=== PATIENT | female | born 1975 | race Caucasian/White ===

== ENCOUNTER 2021-01-16 20:38 | Emergency (ER) | payer MEDICAID, OTHER ==
[2021-01-16 20:58] VITALS: BP 147/84; PULSE 83
--- NOTE | 2021-01-16 21:08 | EDM.PDOC ---
ED HPI GENERAL MEDICAL PROBLEM - General Chief Complaint: Genitourinary Problem Stated Complaint: UTI FOR 2 WKS Time Seen by Provider: 01/16/21 20:55 Source of Information: Reports: Patient History Limitations: Reports: No Limitations - History of Present Illness INITIAL COMMENTS - FREE TEXT/NARRATIVE: Salome is a 45-year-old female presenting to the ED for complaint of bilateral f lank pain and bladder spasms. The patient's problems began approximately 3 weeks ago when she thought she had a vaginal yeast infection. She treated herself with Monistat 7 for 7 days without relief and followed up in the clinic with a nurse practitioner who put her on Diflucan for 2 doses. She still did not improve and returned to her primary provider who did a urinalysis that was negative. He put her on an additional medication for possible bacterial vaginosis, however, the work-up for that was negative as was tested for STIs. She returned approximately a week ago with increased burning in the vaginal area and she was started on Bactrim for possible UTI. She took this for 3 days without improvement return to the clinic at which point her culture showed Klebsiella, however, there were no sensitivities reported. She was changed to doxycycline 100 mg twice daily which she has been on since Wednesday (5 days ago) but has had continued worsening of symptoms prompting her to come to the ED tonight. Again she is complaining of bilateral flank pain and increasing bladder spasms. She denies any fever, chills, nausea or vomiting. She has significant flank tenderness to percussion signifying the likelihood of pyelonephritis at this time. The Klebsiella is most likely resistant to the doxycycline. Lower Groin Pain Score (Numeric/FACES): 10 - Related Data Allergies Allergy/AdvReac Type Severity Reaction Status Date / Time No Known Allergies Allergy Verified 01/16/21 20:48 Home Meds: Home Meds Docosanol [Abreva 10%] 1 dose TOP ASDIRECTED 06/21/16 [History] cycloSPORINE [Restasis] 1 drop EYEBOTH BID 06/21/16 [History] Doxycycline [Doxycycline Hyclate] 100 mg PO BID 01/16/21 [History] Past Medical History - Past Health History Medical/Surgical History: Denies Medical/Surgical History HEENT History: Reports: Impaired Vision Genitourinary History: Reports: Pyelonephritis Other Genitourinary History: UTI, herpes zoster [employer] History: Reports: , Spontaneous Other [employer] History: hysterectomy, genital herpes new diagnosis 08/2015 Immunologic History: Reports: None - Infectious Disease History Infectious Disease History: Reports: Chicken Pox - Past Surgical History GI Surgical History: Reports: Colonoscopy, Polypectomy Female Surgical History: Reports: D&C, Hysterectomy Social & Family History - Family History Oncologic: Reports: Breast - Tobacco Use Tobacco Use Status *Q: Current Every Day Tobacco User Years of Tobacco use: 23 Packs/Tins Daily: 1 - Caffeine Use Caffeine Use: Reports: Coffee - Alcohol Use Days Per Week of Alcohol Use: 7 Number of Drinks Per Day: 3 Total Drinks Per Week: 21 - Recreational Drug Use Recreational Drug Use: No - Living Situation & Occupation Living situation: Reports: , with Family Occupation: Employed ED ROS GENERAL - Review of Systems Review Of Systems: See Below Constitutional: Reports: Malaise HEENT: Reports: No Symptoms Respiratory: Reports: No Symptoms Cardiovascular: Reports: No Symptoms Endocrine: Reports: No Symptoms GI/Abdominal: Reports: Abdominal Pain (Suprapubic) : Reports: Dysuria, Flank Pain, Other (Vaginal burning) Musculoskeletal: Reports: No Symptoms Skin: Reports: No Symptoms Neurological: Reports: No Symptoms Psychiatric: Reports: No Symptoms Hematologic/Lymphatic: Reports: No Symptoms Immunologic: Reports: No Symptoms ED EXAM, RENAL/ - Physical Exam Exam: See Below Exam Limited By: No Limitations General Appearance: Alert, Mild Distress Eye Exam: Bilateral Eye: EOMI, PERRL Head: Atraumatic, Normocephalic Neck: Normal Inspection Respiratory/Chest: No Respiratory Distress, Lungs Clear, Normal Breath Sounds Cardiovascular: Normal Peripheral Pulses, Regular Rate, Rhythm, No Edema GI/Abdominal: Normal Bowel Sounds, Soft Back Exam: Full Range of Motion, CVA Tenderness (R), CVA Tenderness (L) Extremities: Normal Inspection Neurological: Alert, Oriented, Normal Cognition, No Motor/Sensory Deficits Psychiatric: Normal Affect, Anxious Skin Exam: Warm, Dry, Intact, Normal Color Lymphatic: No Adenopathy Course - Vital Signs Last Recorded V/S: Last Vital Signs Temp 36.5 C 01/16/21 20:54 Pulse 83 01/16/21 20:54 Resp 16 01/16/21 20:54 BP 147/84 H 01/16/21 20:54 Pulse Ox 96 01/16/21 20:54 - Orders/Labs/Meds Labs: Laboratory Tests 01/16/21 Range/Units 21:07 Urine Color Yellow (YELLOW) Urine Appearance Clear (CLEAR) Urine pH 7.0 (5.0-8.0) Ur Specific Norman 1.015 (1.008-1.030) Urine Protein Negative (NEGATIVE) mg/dL Urine Glucose (UA) Negative (NEGATIVE) mg/dL Urine Ketones Negative (NEGATIVE) mg/dL Urine Occult Blood Trace-intact H (NEGATIVE) Urine Nitrite Negative (NEGATIVE) Urine Bilirubin Negative (NEGATIVE) Urine Urobilinogen 0.2 (0.2-1.0) EU/dL Ur Leukocyte Esterase Negative (NEGATIVE) Urine RBC 5-10 H (0-5) Urine WBC 0-5 (0-5) Ur Epithelial Cells Few Amorphous Sediment Not seen Urine Bacteria Few Urine Mucus Not seen Meds: Medications Discontinued Medications Generic Name Dose Route Start Last Admin Trade Name Freq PRN Reason Stop Dose Admin Ketorolac Tromethamine 30 mg 01/16/21 21:09 01/16/21 21:15 Ketorolac 30 Mg/Ml Sdv IM 01/16/21 21:10 30 mg ONETIME ONE Administration Levofloxacin 750 mg 01/16/21 21:22 01/16/21 21:52 Levofloxacin 250 Mg Tab PO 01/16/21 21:23 750 mg ONETIME ONE Administration - Radiology Interpretation Free Text/Narrative:: View of the CT of the abdomen and pelvis without contrast reveals surgically absent uterus. There is no evidence for nephrolithiasis or ureterolithiasis. The bladder is distended with slight wall thickening of the bladder wall. No evidence for hydronephrosis or hydroureter. Is a copious amount of stool in the colon with mildly distended small bowel that appears to be fluid-filled. There is no evidence for an obstruction. No air-fluid levels. - Re-Assessments/Exams Free Text/Narrative Re-Assessment/Exam: 01/16/21 21:28 I reviewed the patient's my chart records showing her urinalysis with positive nitrate and leukocyte esterase, 10-20 WBCs with 0-3 RBCs. Her urine culture is growing out Klebsiella Weir a. There is no sensitivities reported. Does not appear that the doxycycline that she has been on for the last 5 days has had any activity against Klebsiella so we will switch her to levofloxacin 750 mg daily for 7 days. Patient was given Toradol 30 mg IM in the ED for pain. We will continue this at 10 mg 4 times daily p.o. A repeat urinalysis was performed in the ED. 01/16/21 21:33 repeat urinalysis shows 5-10 RBCs but 0-3 WBCs and negative leukocyte esterase or nitrites now. We will get a CT of the abdomen and pelvis without contrast to evaluate for other causes of bilateral flank pain and bladder spasm. 01/16/21 22:[address] of the abdomen and pelvis without contrast reveals slight thickening of the bladder wall without evidence for hydronephrosis, pyelonephritis, nephrolithiasis or ureterolithiasis. The copious amount of colonic stool throughout the colon with mildly distended small bowel that is fluid-filled. There is no obvious evidence for obstruction. The uterus is surgically absent. Concerning is the worsening of the urinary symptoms and vaginal burning with improvement of the urinalysis despite being on doxycycline for Klebsiella UTI. The patient has already been on Monistat 7 and Diflucan making the likelihood of vaginal candidiasis unlikely. She is also had a negative work-up for bacterial vaginosis. Does appear on her CT that she does have signs for constipation. 01/16/21 22:30 given the patient's ongoing symptoms and despite having a negative UA today, I do believe that the patient still having symptomatic cystitis. We will put her on Levaquin 7 and 50 mg daily for 7 days. She is instructed to follow-up with her primary care provider for recheck. I will also put her on Toradol 10 mg 4 times daily for pain control. Indications return to the ED were discussed and she was discharged in satisfactory condition. Departure - Departure Time of Disposition: 22:31 Disposition: Home, Self-Care 01 Clinical Impression: UTI due to Klebsiella species - Discharge Information Referrals: PCP,None [Primary Care Provider] - Forms: ED Department Discharge Care Plan Goals: Discontinue the use of the doxycycline. We are starting you on Levaquin 750 mg daily for 6 more days. In addition I have a prescription for you for oral Toradol which is the pain medicine we gave you by a shot in the ED. You may take this up to 4 times a day for the next couple of days. Both medications have been sent out to the [facility] dispensary [place]. You may fill those and initiate them as prescribed. Sepsis Event Note (ED) - Focused Exam Vital Signs: Vital Signs Temp Pulse Resp BP Pulse Ox 01/16/21 20:54 36.5 C 83 16 147/84 H 96 - Problem List & Annotations (1) UTI due to Klebsiella species SNOMED Code(s): 755648022270182 Code(s): N39.0 - URINARY TRACT INFECTION, SITE NOT SPECIFIED; B96.89 - OTH BACTERIAL AGENTS THE CAUSE OF DISEASES CLASSD [id number] Status: Acute Priority: Medium Current Visit: Yes - Problem List Review Problem List Initiated/Reviewed/Updated: Yes
[2021-01-16] MEDS ORDERED: Ketorolac 30 MG/ML SDV IM ONE (21:09)
[2021-01-16] MEDS ORDERED: Levofloxacin 250 MG Tab PO ONE (21:22)
--- NOTE | 2021-01-16 22:28 | CRLCT ---
INDICATION: Bilateral flank pain TECHNIQUE: CT Abdomen and pelvis without i.v. contrast. Coronal and sagittal reformats were obtained. COMPARISON: 12/01/2018 FINDINGS: Lower chest: Unremarkable. Liver: Unremarkable. Spleen: Unremarkable. Pancreas: Unremarkable. Gallbladder: Unremarkable. Kidney: Unremarkable. No kidney or ureteral stones or obstruction seen. Adrenal: Unremarkable. Bowel: There is a gasless density near the ileocecal valve without any apparent obstruction of the terminal ileum. This is most likely due to small bowel contents incompletely mixing with cecal stool. The appendix is normal in appearance and size. The air-filled appendix is best seen on coronal images 59-65. Vascular: Unremarkable. Lymph: Unremarkable. Peritoneum: Unremarkable. No pneumoperitoneum is seen. No significant ascites is noted. Pelvis: The patient is status post prior hysterectomy. Soft tissue: Unremarkable. Bone: Unremarkable for age. IMPRESSION: 1. Unremarkable with no CT correlate for the patient`s symptoms seen. Dictated by Chava Talbert MD @ 01/16/2021 10:25:48 PM Please note that all CT scans at this facility use dose modulation, iterative reconstruction, and/or weight-based dosing when appropriate to reduce radiation dose to as low as reasonably achievable. Dictated by: Chava Talbert MD @ 01/16/2021 22:27:18 (Electronically Signed)
== END 2021-01-16 22:45 | disposition home or self-care (01) ==
LOC: JP.ED 20:38
DX: N39.0 Urinary tract infection, site not specified (principal); B96.89 Other specified bacterial agents as the cause of diseases classified elsewhere; Z72.0 Tobacco use
CPT/HCPCS: 74176; 81001; 96372; 99284; A9270; J1885; 99283

== ENCOUNTER 2023-05-29 11:25 | Emergency (ER) | payer SELFPAY | END 2023-05-29 11:59 | disposition left against medical advice (07) | LOC: JP.ED 11:25 | DX: Z53.21 Procedure and treatment not carried out due to patient leaving prior to being seen by health care provider (principal) ==